=== PATIENT | male | born 1980 | race Caucasian/White ===

== ENCOUNTER 2018-10-15 01:58 | Emergency (ER) | payer MEDICARE, MEDICAID ==
[~2018-10-15] VITALS: Ht 182.9 cm; Wt 61.2 kg
--- NOTE | 2018-10-15 02:27 | ED General ---
General Chief Complaint: Chest Wall/Rib Pain Stated Complaint: FELL OFF TRUCK SLIPPED ON ICE, HURT RIBS Nursing Triage Note: Pt. reported he hurt his ribs on the right side when he jumped off the tail gate of his truck, slipped on the ice and hit his ribs on the tail gate. This happened about 1 week ago but the pain is worse tonight. Nursing Sepsis Screen: No Definite Risk History of Present Illness Date Seen by Provider: Oct 15, 2018 Time Seen by Provider: 02:13 This is a 38-year-old male who complains of diffuse right sided chest wall pain that began about a week ago when he had a mechanical slip and fall onto that area from a standing position. He says that his pain improved somewhat but has now recurred. It is much worse with direct palpation or when he is lying right on that area or with certain position changes. He has no shortness of breath. No vomiting. No change in bowel movements. No change in urination. His pain is sore, moderate to severe at worst, at rest it is mild or completely resolved. No weakness numbness or tingling. No other symptoms. Allergies and Home Medications Allergies Coded Allergies: No Known Drug Allergies (Unverified , 10/15/18) Patient Home Medication List Home Medication List Reviewed: Yes Review of Systems Review of Systems Constitutional: no symptoms reported EENTM: no symptoms reported Respiratory: no symptoms reported Cardiovascular: no symptoms reported Gastrointestinal: no symptoms reported Genitourinary: no symptoms reported Musculoskeletal: see HPI Skin: no symptoms reported Psychiatric/Neurological: No Symptoms Reported Hematologic/Lymphatic: No Symptoms Reported Immunological/Allergic: no symptoms reported Past Xjwdgsh-Kigkkb-Jpolji Hx Patient Social History Recent Foreign Travel: No Contact w/Someone Who Travel: No Recent Infectious Disease Expo: No Physical Exam Vital Signs Vital Signs - First Documented 10/15/18 02:13 Temp 98.7 Pulse 83 Resp 16 B/P (MAP) 116/76 (89) Pulse Ox 96 Capillary Refill : Less Than 3 Seconds Height, Weight, BMI Height: 6'" Weight: 135lbs. oz. 61.394774uh; BMI Method:Stated General Appearance: No Apparent Distress HEENT: PERRL/EOMI Neck: Supple Respiratory: Lungs Clear, Other (normal inspection of the chest. There is exquisite tenderness to palpation over the right lateral mid to lower chest) Cardiovascular: Regular Rate, Rhythm, Normal Peripheral Pulses Gastrointestinal: Other (normal inspection of the abdomen, there is moderate tenderness in the right upper quadrant without rebound or rigidity, there is voluntary guarding on exam) Back: No Vertebral Tenderness Neurologic/Psychiatric: Alert, Oriented x3, No Motor/Sensory Deficits; No Abnormal Gait Skin: Warm/Dry Progress/Results/Core Measures Suspected Sepsis Recent Fever Within 48 Hours: No Infection Criteria Present: None New/Unexplained Altered Menta: No Sepsis Screen: No Definite Risk SIRS Temperature:98.7 Pulse: 83 Respiratory Rate: 16 Laboratory Tests 10/15/18 02:34: White Blood Count 9.2 Blood Pressure 116 /76 Mean: 89 Laboratory Tests 10/15/18 02:34: Creatinine 0.73, Platelet Count 233, Total Bilirubin 0.5 Results/Orders Lab Results Laboratory Tests Test 10/15/18 02:34 Range/Units White Blood Count 9.2 4.3-11.0 10^3/uL Red Blood Count 5.10 4.35-5.85 10^6/uL Hemoglobin 15.5 13.3-17.7 G/DL Hematocrit 46 40-54 % Mean Corpuscular Volume 91 80-99 FL Mean Corpuscular Hemoglobin 30 25-34 PG Mean Corpuscular Hemoglobin Concent 34 32-36 G/DL Red Cell Distribution Width 12.4 10.0-14.5 % Platelet Count 233 130-400 10^3/uL Mean Platelet Volume 11.0 H 7.4-10.4 FL Sodium Level 139 135-145 MMOL/L Potassium Level 3.9 3.6-5.0 MMOL/L Chloride Level 103 98-107 MMOL/L Carbon Dioxide Level 17 L 21-32 MMOL/L Anion Gap 19 H 5-14 MMOL/L Blood Urea Nitrogen 5 L 7-18 MG/DL Creatinine 0.73 0.60-1.30 MG/DL Estimat Glomerular Filtration Rate > 60 BUN/Creatinine Ratio 7 Glucose Level 103 70-105 MG/DL Calcium Level 8.8 8.5-10.1 MG/DL Corrected Calcium 8.4 L 8.5-10.1 MG/DL Total Bilirubin 0.5 0.1-1.0 MG/DL Aspartate Amino Transf (AST/SGOT) 11 5-34 U/L Alanine Aminotransferase (ALT/SGPT) 7 0-55 U/L Alkaline Phosphatase 123 40-136 U/L Total Protein 6.9 6.4-8.2 GM/DL Albumin 4.5 3.2-4.5 GM/DL My Orders Orders - SOFÍA SILVER DO Comprehensive Metabolic Panel (10/15/18 02:20) Cbc No Diff (10/15/18 02:20) Ct Abdomen/Pelvis W (10/15/18 02:20) Ribs/Unilateral With Chest (10/15/18 02:20) Iopamidol 61% Injection (Isovue 300 61% (10/15/18 02:45) Sodium Chloride Flush (Catheter Flush Sy (10/15/18 02:45) Iopamidol 61% Injection (Isovue 300 61% (10/15/18 03:15) Sodium Chloride Flush (Catheter Flush Sy (10/15/18 03:15) Medications Given in ED Current Medications Medications Dose Ordered Sig/Hiral Route Start Time Stop Time Status Last Admin Dose Admin Iopamidol 50 ml ONCE ONCE IV 10/15/18 03:15 10/15/18 03:16 DC 10/15/18 03:29 50 ML Sodium Chloride 10 ml NEEDED PRN IV 10/15/18 02:45 10/15/18 03:29 10 ML Vital Signs/I&O 10/15/18 02:13 Temp 98.7 Pulse 83 Resp 16 B/P (MAP) 116/76 (89) Pulse Ox 96 Capillary Refill : Less Than 3 Seconds Blood Pressure Mean: 89 Progress Note : Progress Note Patient has had right-sided chest wall pain for about a week after a mechanical fall onto that area. His pain is recurred. He has exquisite tenderness over the right side of the chest in the midaxillary line, there is also tenderness in the right upper quadrant which may be related to a rib injury although an underlying hepatic injury would be possible. We will check basic labs and LFTs, we will obtain an x-ray of the chest and ribs and we will obtain a CT of the abdomen and pelvis. Diagnostic Imaging Diagonstic Imaging: Xray Comments EP interpretation: No displaced rib fractures, no pneumothorax, no effusion. Trachea is midline, cardiomediastinal silhouette and diaphragmatic borders are unremarkable, no other obvious bony or soft tissue abnormality Reviewed: Reviewed by Me Departure Impression Primary Impression: Chest wall contusion Disposition: 01 HOME, SELF-CARE Condition: Stable Departure-Patient Inst. Referrals: DEMETRIUS GARCIA APRN (PCP/Family) Primary Care Physician Patient Instructions: Bruised Rib (DC) Scripts Tramadol HCl (Tramadol HCl) 50 Mg Tablet 50 MG PO Q6H PRN for PAIN, #20 TAB 0 Refills Prov: SOFÍA SILVER DO 10/15/18 SOFÍA SILVER DO Oct 15, 2018 02:27
--- NOTE | 2018-10-15 02:34 | NUR ---
Labs collected and sent to the lab.
[2018-10-15] MEDS ORDERED: IOPAMIDOL 61% 100 ML (ISOVUE 300) VIAL IV ONE ×2 (02:45→03:15)
[2018-10-15] MEDS: CATHETER FLUSH 10 ML SYR IV PRN ×2 (02:51→03:29)
--- NOTE | 2018-10-15 02:51 | NUR ---
Pt. refused the iv at this stating he just came in here tonight to get pain medications. Doctor talked to the patient and will attempt to place the iv.
[2018-10-15 03:05] LABS: HEMOGLOBIN 15.5 G/DL (13.3-17.7); RED CELL DISTRIBUTION WIDTH 12.4 % (10.0-14.5); WHITE BLOOD COUNT 9.2 10^3/uL (4.3-11.0)
[2018-10-15] MEDS ORDERED: CATHETER FLUSH 10 ML SYR IV PRN (03:15)
[2018-10-15 03:23] LABS: ALANINE AMINOTRANSFERASE 7 U/L (0-55); ALBUMIN 4.5 GM/DL (3.2-4.5); ALKALINE PHOSPHATASE 123 U/L (40-136); BILIRUBIN,TOTAL 0.5 MG/DL (0.1-1.0); BUN/CREATININE RATIO 7; CALCIUM 8.8 MG/DL (8.5-10.1); CARBON DIOXIDE 17 MMOL/L (21-32); CHLORIDE 103 MMOL/L (98-107); CREATININE SERUM 0.73 MG/DL (0.60-1.30); GFR ESTIMATED > 60; GLUCOSE 103 MG/DL (70-105); POTASSIUM 3.9 MMOL/L (3.6-5.0); SODIUM 139 MMOL/L (135-145); TOTAL PROTEIN 6.9 GM/DL (6.4-8.2)
[2018-10-15] MEDS ORDERED: TRAM50TA2 PO (04:14)
[2018-10-15 04:18] VITALS: BP 110/80
--- NOTE | 2018-10-15 07:51 | Diagnostic Imaging Report ---
INDICATION: Trauma with right rib pain. FINDINGS: There is a small metallic screw overlying the soft tissues of the right seventh rib along the lateral aspect of the rib. There are no rib fractures demonstrated. The right lung is well-aerated and clear. No pneumothorax or pleural effusion. IMPRESSION: Small metallic screw overlying the right rib as described. No other abnormalities noted. Dictated by: Dictated on workstation # [id number]
--- NOTE | 2018-10-15 07:57 | Diagnostic Imaging Report ---
PROCEDURE: CT abdomen and pelvis with contrast. TECHNIQUE: Multiple contiguous axial images were obtained through the abdomen and pelvis after administration of intravenous contrast. INDICATION: Fall. Persistent right flank pain and right rib pain. FINDINGS: The lung bases are clear without evidence of pneumothorax or pleural effusion. No evidence of fractures of the lower ribs. Liver is mildly enlarged. Gallbladder and bile ducts are normal. Pancreas and spleen are normal. Adrenal glands and kidneys are normal. Bowel gas pattern is normal. There is no free air or free fluid. Bladder appears normal. Bone windows show no fractures. Hip is intact. Reconstructed images show good alignment of the lumbosacral spine. Facets show good alignment without pars defect. IMPRESSION: No acute abnormalities demonstrated. Dictated by: Dictated on workstation # [id number]
== END 2018-10-15 04:18 | disposition home or self-care (01) ==
LOC: ER FS 02:03
DX: S20.211A Contusion of right front wall of thorax, initial encounter (principal); W00.2XXA Other fall from one level to another due to ice and snow, initial encounter; W22.09XA Striking against other stationary object, initial encounter
CPT/HCPCS: 36415; 71101; 74177; 80053; 85027

== ENCOUNTER 2020-07-09 | Emergency (ER) | payer MEDICARE, MEDICAID ==
[~2020-07-09] MED LIST: TRM50T PO
--- NOTE | 2020-07-09 00:37 | ED General ---
General Chief Complaint: Chest Wall Stated Complaint: LEFT SIDE RIB PAIN Nursing Triage Note: Pt complaining of left rib pain, no injury Nursing Sepsis Screen: No Definite Risk Exam Limitations: No Limitations History of Present Illness Date Seen by Provider: Jul 09, 2020 Time Seen by Provider: 23:45 Initial Comments Patient is a 40-year-old male with history of chronic left rib pain after injury years ago. States pain is worse this evening with palpation and with movement and trunk rotation. No medications or therapies taken prior to ED arrival. No shortness of breath. Fever chills or sweats. No leg pain or swelling. No history of DVT or PE. No other acute symptoms or complaints. Timing/Duration: Changing Over Time Severity: Moderate Modifying Factors: improves with Movement Associated Systoms: Chest Pain Allergies and Home Medications Allergies Coded Allergies: No Known Drug Allergies (Unverified , 10/15/18) Home Medications Tramadol HCl 50 Mg Tablet, 50 MG PO Q6H PRN for PAIN Prescribed by: CLAUDIA PEREZ on 07/09/20 7891 Patient Home Medication List Home Medication List Reviewed: Yes Review of Systems Review of Systems Constitutional: see HPI EENTM: see HPI Respiratory: see HPI Gastrointestinal: see HPI Genitourinary: see HPI Skin: see HPI Psychiatric/Neurological: See HPI Hematologic/Lymphatic: See HPI Immunological/Allergic: see HPI Past Fdercer-Sfikss-Ynznxc Hx Past Med/Social Hx: Reviewed Nursing Past Med/Soc Hx Patient Social History Alcohol Use: Denies Use Recreational Drug Use: No Recent Foreign Travel: No Contact w/Someone Who Travel: No Recent Infectious Disease Expo: No Recent Hopitalizations: No Physical Abuse: No Sexual Abuse: No Past Medical History Surgeries: No Respiratory: No Cardiac: No Neurological: No Genitourinary: No Gastrointestinal: No Musculoskeletal: No Endocrine: No HEENT: No Cancer: No Psychosocial: No Integumentary: No Blood Disorders: No Physical Exam Vital Signs Vital Signs - First Documented 07/09/20 00:05 Temp 36.5 Pulse 72 Resp 16 B/P (MAP) 128/83 (98) Pulse Ox 99 O2 Delivery Room Air Capillary Refill : Less Than 3 Seconds Height, Weight, BMI Height: 6'" Weight: 135lbs. oz. 61.379888ya; BMI Method:Stated General Appearance: Anxious, Mild Distress Eyes: Bilateral Eye Normal Inspection, Bilateral Eye PERRL, Bilateral Eye EOMI HEENT: PERRL/EOMI, Pharynx Normal Neck: Full Range of Motion, Non Tender, Supple Respiratory: Chest Non Tender, Lungs Clear, Other (L lower lateral rin tenderness, no crepitus of subcutaneous emphysema) Cardiovascular: Regular Rate, Rhythm, No Edema, Normal Peripheral Pulses Gastrointestinal: Normal Bowel Sounds, Non Tender, Soft Back: Normal Inspection, No CVA Tenderness Extremity: Non Tender, No Calf Tenderness Neurologic/Psychiatric: Alert, Oriented x3 Focused Exam Sepsis Stage: Ruled Out Progress/Results/Core Measures Suspected Sepsis Recent Fever Within 48 Hours: No Infection Criteria Present: None New/Unexplained Altered Menta: No Sepsis Screen: No Definite Risk SIRS Temperature: Pulse: 72 Respiratory Rate: 16 Blood Pressure 128 /83 Mean: 98 Results/Orders My Orders Orders - LIZETH CASE DO Ribs/Unilateral With Chest (07/09/20 00:15) Hydrocodone/Apap 5/325 Tablet (Lortab 5 (07/09/20 00:45) Vital Signs/I&O Capillary Refill : Less Than 3 Seconds Blood Pressure Mean: 98 Departure Communication (Admissions) Left rib series/PA chest: No pneumothorax, acute rib fracture or infiltrate on preliminary ED review Chronic left rib pain without new finding on x-ray. Recommend supportive care with PCP follow-up. Impression Primary Impression: Contusion of left chest wall Disposition: HOME, SELF-CARE Condition: Stable Departure-Patient Inst. Referrals: DEMETRIUS GARCIA APRN (PCP/Family) Primary Care Physician LIZETH CASE DO Jul 09, 2020 00:37
[2020-07-09 00:41] VITALS: BP 128/83
[2020-07-09] MEDS ORDERED: HYDROcodone/APAP 5 MG/325 MG (LORTAB) TAB PO ONE (00:45)
--- NOTE | 2020-07-09 07:26 | Diagnostic Imaging Report ---
INDICATION: Left rib injury AP view of the chest is obtained with multiple oblique views of left ribs. Lungs are clear and well expanded. Heart size and pulmonary vascularity are unremarkable. There is no radiographic evidence of displaced left rib fracture. No pneumothorax or pleural reaction is identified. IMPRESSION: No radiographic evidence of left rib fracture or other acute abnormality in the chest. Dictated by: Dictated on workstation # [id number]
[2020-07-09] MEDS ORDERED: TRM50T PO (16:27)
== END 2020-07-09 00:42 | disposition home or self-care (01) ==
LOC: EDUNIT# → ER FS 00:04
DX: S20.212A Contusion of left front wall of thorax, initial encounter (principal); F41.9 Anxiety disorder, unspecified; X58.XXXA Exposure to other specified factors, initial encounter
CPT/HCPCS: 71101

== ENCOUNTER 2020-07-09 15:44 | Emergency (ER) | payer MEDICARE, MEDICAID ==
[2020-07-09 15:52] VITALS: BP 115/80
--- NOTE | 2020-07-09 16:16 | ED General ---
General Chief Complaint: General Problems/Pain Stated Complaint: RIB PAIN Nursing Triage Note: patient was here last night and states he was given prescription for tramadol that he handed in to Ad. Ad is unable to find a prescription for him. Patient is here stating he needs something for pain. Has not taken anything for pain today. Is rating R side pain at 6/10. Nursing Sepsis Screen: No Definite Risk Source of Information: Patient, Old Records History of Present Illness Date Seen by Provider: Jul 09, 2020 Time Seen by Provider: 16:16 Initial Comments 40-year-old male presenting with pain to the left side of his chest. He states that he has had chronic pain in this area since an injury about a year and half ago. About 3 days ago he had slid off of the wrist that he was helping to work on. He denies any shortness of breath or difficulty with breathing. He has pain with palpation of the left chest wall or with trying to lay on his left side of his chest. He states that he has to sleep on the right side of his chest. He was seen around 1 AM this morning for the same symptoms but states that he was discharged with a prescription for pain medicine but it did not have his correct information on it so he had come back to get a new prescription. He has not tried taking any ghwq-mpb-vjyymxc medication for his pain. He states that he just wants a new prescription for the tramadol that he was unable to fill from earlier today due to having incorrect information on the prescription. he denies any new injury or symptoms since being seen earlier today. Allergies and Home Medications Allergies Coded Allergies: No Known Drug Allergies (Unverified , 10/15/18) Home Medications Tramadol HCl 50 Mg Tablet, 50 MG PO Q6H PRN for PAIN Prescribed by: CLAUDIA PEREZ on 07/09/20 [id number] Patient Home Medication List Home Medication List Reviewed: Yes Review of Systems Review of Systems Constitutional: No chills, No fever, No malaise EENTM: no symptoms reported Respiratory: No cough, No hemoptysis, No short of breath, No stridor, No wheezing Cardiovascular: see HPI Gastrointestinal: no symptoms reported Genitourinary: no symptoms reported Musculoskeletal: no symptoms reported Skin: no symptoms reported Psychiatric/Neurological: No Symptoms Reported Past Eerzqdm-Elxxmk-Jnbatz Hx Past Med/Social Hx: Reviewed Nursing Past Med/Soc Hx Patient Social History Alcohol Use: Denies Use Recreational Drug Use: No Smoking Status: Never a Smoker 2nd Hand Smoke Exposure: No Recent Foreign Travel: No Contact w/Someone Who Travel: No Recent Infectious Disease Expo: No Recent Hopitalizations: No Physical Abuse: No Sexual Abuse: No Mistreated: No Fear: No Past Medical History Surgeries: No Respiratory: No Cardiac: No Neurological: No Genitourinary: No Gastrointestinal: No Musculoskeletal: No Endocrine: No HEENT: No Cancer: No Psychosocial: No Integumentary: No Blood Disorders: No Physical Exam Vital Signs Vital Signs - First Documented 07/09/20 15:52 Temp 35.9 Pulse 70 Resp 16 B/P (MAP) 115/80 (92) Pulse Ox 100 Capillary Refill : Less Than 3 Seconds Height, Weight, BMI Height: 6'" Weight: 135lbs. oz. 61.821720jx; BMI Method:Stated General Appearance: No Apparent Distress, Thin Respiratory: Lungs Clear, Normal Breath Sounds, No Accessory Muscle Use, No Respiratory Distress; No Rhonci, No Stridor, No Wheezing; Other (mild tenderness to palpation along the left lateral ribs without any crepitus) Cardiovascular: Regular Rate, Rhythm, Normal Peripheral Pulses Gastrointestinal: Normal Bowel Sounds, No Pulsatile Mass, Non Tender, Soft Neurologic/Psychiatric: Alert, Oriented x3 Skin: Normal Color, Warm/Dry; No Ecchymosis Progress/Results/Core Measures Suspected Sepsis Recent Fever Within 48 Hours: No Infection Criteria Present: None New/Unexplained Altered Menta: No Sepsis Screen: No Definite Risk SIRS Temperature: Pulse: 70 Respiratory Rate: 16 Blood Pressure 115 /80 Mean: 92 Results/Orders Vital Signs/I&O 07/09/20 15:52 Temp 35.9 Pulse 70 Resp 16 B/P (MAP) 115/80 (92) Pulse Ox 100 Capillary Refill : Less Than 3 Seconds Blood Pressure Mean: 92 Progress Note : Progress Note reviewing the x-ray images from earlier today and emergency department note. Advised patient that I could send an electronic prescription for tramadol to the pharmacy. Encouraged him to try alternating ice and heat to his chest wall. He can also try acetaminophen or ibuprofen. Check back with primary provider for continued concerns. Departure Impression Primary Impression: Contusion of rib on left side Qualified Codes: S20.212A - Contusion of left front wall of thorax, initial encounter Additional Impressions: Contusion of left chest wall Qualified Codes: S20.212A - Contusion of left front wall of thorax, initial encounter Left-sided chest wall pain Disposition: HOME, SELF-CARE Condition: Stable Departure-Patient Inst. Decision time for Depature: 16:28 Referrals: DEMETRIUS GARCIA APRN (PCP/Family) Primary Care Physician Patient Instructions: Bruised Rib (DC), CHEST CONTUSION Add. Discharge Instructions: May alternate ice and heat to the chest wall to help with pain. Take Acetaminophen 650 mg every 6 hours as needed for pain. May also try Ib uprofen 600 mg every 8 hours as needed for pain and inflammation. For severe pain may take Tramadol 50 mg every 6 hours. Check back with clinic for continued problems or more severe pain. All discharge instructions reviewed with patient and/or family. Voiced understanding. Scripts Tramadol HCl (Tramadol HCl) 50 Mg Tablet 50 MG PO Q6H PRN for PAIN for 3 Days, #20 TAB 0 Refills Prov: CLAUDIA PEREZ MD 07/09/20 Images Torso/Trunk 1 - Mild, Tenderness (mild tenderness to palpation of the left lateral lower ribs without crepitus.), Other-See Progress Note Progress no ecchymosis or fluid collection noted. CLAUDIA PEREZ MD Jul 09, 2020 16:16
[2020-07-09] MEDS ORDERED: TRM50T PO (16:27)
== END 2020-07-09 16:35 | disposition home or self-care (01) ==
LOC: EDUNIT# 15:44 → ER FS 15:45
DX: S20.212A Contusion of left front wall of thorax, initial encounter (principal); W18.39XA Other fall on same level, initial encounter
CPT/HCPCS: 99281

== ENCOUNTER 2020-09-22 00:59 | Emergency (ER) | payer MEDICARE, MEDICAID ==
[~2020-09-22] VITALS: Ht 172.7 cm; Wt 67.1 kg
[2020-09-22 01:08] VITALS: BP 125/75
--- NOTE | 2020-09-22 01:13 | ED Integumentary General ---
General Chief Complaint: Skin/Wound Problems Stated Complaint: LUMP ON RIGHT LEG History of Present Illness Date Seen by Provider: Sep 22, 2020 Time Seen by Provider: 01:08 Initial Comments 40-year-old male with a "lump" on his right leg. Small firm area with some slight discoloration. its on Medial aspect of the right leg right below the knee. Patient is unsure of exactly how long has been there. He presents tonight because it hurts and sometimes hard for him to sleep. He has been doing this for few days. Patient denies any other systemic complaints. Allergies and Home Medications Allergies Coded Allergies: No Known Drug Allergies (Unverified , 10/15/18) Home Medications Tramadol HCl 50 Mg Tablet, 50 MG PO Q6H PRN for PAIN Prescribed by: CLAUDIA PEREZ on 07/09/20 0334 Patient Home Medication List Home Medication List Reviewed: Yes Review of Systems Review of Systems Constitutional: no symptoms reported EENTM: no symptoms reported Cardiovascular: no symptoms reported Gastrointestinal: no symptoms reported Musculoskeletal: no symptoms reported Skin: see HPI Psychiatric/Neurological: No Symptoms Reported Endocrine: No Symptoms Reported Past Yrucudf-Ckifkb-Wokcej Hx Past Med/Social Hx: Reviewed Nursing Past Med/Soc Hx Patient Social History 2nd Hand Smoke Exposure: No Recent Hopitalizations: No Past Medical History Surgeries: No Respiratory: No Cardiac: No Neurological: No Genitourinary: No Gastrointestinal: No Musculoskeletal: No Endocrine: No HEENT: No Cancer: No Psychosocial: No Integumentary: No Blood Disorders: No Physical Exam Vital Signs Capillary Refill : General Appearance: no apparent distress HEENT: PERRL/EOMI Cardiovascular: normal peripheral pulses Respiratory: chest non-tender, lungs clear Gastrointestinal: soft Extremities: normal range of motion Neurologic/Psychiatric: other (Mild developmental delay) Skin: other Skin Problem Location: lower extremities (Right leg, medial aspect) Skin Problem Character: other (Small hematoma/contusion over a varicosity.) Departure Impression Primary Impression: Hematoma Disposition: HOME, SELF-CARE Condition: Stable Departure-Patient Inst. Referrals: DEMETRIUS GARCIA APRN (PCP/Family) Primary Care Physician Patient Instructions: Contusion (DC) Add. Discharge Instructions: 4% topical lidocaine with menthol cream, gel or patch. Use as directed on package. This is available in the pharmacy section. All discharge instructions reviewed with patient and/or family. Voiced understanding. SUSHILA MORALES DO Sep 22, 2020 01:12
== END 2020-09-22 01:18 | disposition home or self-care (01) ==
LOC: EDUNIT# 00:59 → ER FS 01:03
DX: S80.11XA Contusion of right lower leg, initial encounter (principal); X58.XXXA Exposure to other specified factors, initial encounter
CPT/HCPCS: 99282